=== PATIENT | male | born 1950 | race Caucasian/White ===

== ENCOUNTER 2018-10-12 21:53 | Emergency (ER) | payer OTHER, MEDICARE ==
[~2018-10-12] VITALS: Ht 175.3 cm; Wt 83.9 kg
--- NOTE | ~2018-10-12 | EKG ---
[address] [place] [address] ELECTROCARDIOGRAM REPORT Name: SAJI WILLETT Room #: 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1950 Requested By: Aida Batista Order Number: [id number] MD: Yg Wellington Measurements Intervals Richards Rate: 62 P: 54 RI: 197 QRS: -27 QRSD: 105 T: 56 QT: 429 QTc: 436 Interpretive Statements Sinus rhythm Borderline left axis deviation Compared to ECG 12/01/2016 07:00:54 No significant changes Electronically Signed On 10-13-2018 8:42:24 [employer] by Yg Wellington [email or web address] <ELECTRONICALLY SIGNED> By: Yg Wellington MD, LOCATED WITHIN [facility] 10/13/18 [id number] Yg Wellington MD, FACC /EPI
[~2018-10-12 21:53] MED LIST: ASPIR 8181 MG PO; ASPIRIN325 PO; ATORVASTATIN CA40 MG PO; BENAZEPRIL 10 M10 MG PO; CALCITRIOL1 MCG/1 M5 TOP; CLARITIN10 MG PO; EFFIENT10 MG PO; IMDUR 60 MG TAB60 M1 PO; LIPITOR 20 MG T20 M1 PO; LOPRESSOR50 PO; LUTEIN20 M1 PO; LUTEIN40 MG PO; METOPROLOL SUCC50 MG PO; NORCO 5-325 TA1 EACH PO; OCUVITE EYE +1 EACH PO; OCUVITE TABLET1 EAC1 PO; PATANASE30.5 GM NASAL; PRILOSEC 20 MG20 MG PO; TOPROL XL25 MG PO; VITAMIN D2000 UNIT PO; VITAMIN E400 UNIT PO
[2018-10-12] MEDS ORDERED: BENAZEPRIL HCL5 MG PO (22:06)
[2018-10-12] MEDS ORDERED: METOPROLOL SUCC50 MG PO (22:06)
[2018-10-12] MEDS ORDERED: TOPROL XL25 MG PO (22:07)
[2018-10-12 22:18] LABS: ABSOLUTE NEUTROPHILS 4.7 thou/uL (1.4-8.2); BASOPHILS 1.1 % (0.0-2.0); EOSINOPHILS 6.9 % (0.0-3.0); HEMATOCRIT 41.9 % (42.0-52.0); HEMOGLOBIN 14.3 gm/dL (14.0-18.0); LYMPHOCYTES 30.4 % (24.0-44.0); MCH 28.8 pg (26.0-34.0); MCV 84.6 fL (80.0-100.0); MONOCYTES 8.1 % (1.0-8.0); PLATELET COUNT 180 thou/uL (150-400); POLYS 53.5 % (36.0-66.0); RBC 4.96 mil/uL (4.50-6.00); RDW 13.8 % (10.5-14.5); WBC 8.7 thou/uL (4.0-11.0)
[2018-10-12 22:20] LABS: ANION GAP 10 mmol/L (7-16); BUN 26 mg/dL (7-18); CALCIUM 8.6 mg/dL (8.5-10.1); CHLORIDE 104 mmol/L (98-107); CO2 30 mmol/L (21-32); CREATININE 1.2 mg/dL (0.7-1.3); GLUCOSE 109 mg/dL (74-106); POTASSIUM 3.9 mmol/L (3.5-5.1); SODIUM 144 mmol/L (136-145)
[2018-10-12 22:29] LABS: ALBUMIN 3.8 g/dL (3.4-5.0); SGOT 20 U/L (15-37); SGPT 32 U/L (30-65); TOTAL BILIRUBIN 0.5 mg/dL (<0.1-1.0); TROPONIN-I <0.06 ng/mL (<0.06)
[2018-10-13 01:02] VITALS: BP 111/66
== END 2018-10-13 01:06 | disposition home or self-care (01) ==
LOC: ER 21:53
PROVIDERS: Emergency Medicine
DX: R07.89 Other chest pain (principal); I10 Essential (primary) hypertension; E78.5 Hyperlipidemia, unspecified; K21.9 Gastro-esophageal reflux disease without esophagitis; L40.9 Psoriasis, unspecified; Z87.891 Personal history of nicotine dependence; Z88.2 Allergy status to sulfonamides

== ENCOUNTER → 2020-05-22 | Outpatient (CLI) | payer OTHER, MEDICARE ==
[~2020-05-22] MED LIST changes: +BENAZEPRIL HCL5 MG PO
== END ==
LOC: SJCVC 10:40
PROVIDERS: ATTEND Internal Medicine
DX: I25.10 Atherosclerotic heart disease of native coronary artery without angina pectoris (principal); E78.5 Hyperlipidemia, unspecified; I10 Essential (primary) hypertension; I65.23 Occlusion and stenosis of bilateral carotid arteries; E11.9 Type 2 diabetes mellitus without complications; K21.9 Gastro-esophageal reflux disease without esophagitis; Z79.82 Long term (current) use of aspirin; Z79.899 Other long term (current) drug therapy; Z87.891 Personal history of nicotine dependence

== ENCOUNTER → 2020-10-08 | Outpatient (CLI) | payer OTHER, MEDICARE | LOC: SJCVCIMAG 13:57 | PROVIDERS: ATTEND Internal Medicine | DX: I25.10 Atherosclerotic heart disease of native coronary artery without angina pectoris (principal); E78.5 Hyperlipidemia, unspecified; I10 Essential (primary) hypertension; Z98.61 Coronary angioplasty status; Z79.899 Other long term (current) drug therapy ==

== ENCOUNTER → 2021-04-14 | Outpatient (CLI) | payer OTHER, MEDICARE | LOC: SJCVC 10:39 | PROVIDERS: ATTEND Internal Medicine | DX: R00.1 Bradycardia, unspecified (principal); I25.10 Atherosclerotic heart disease of native coronary artery without angina pectoris; E78.5 Hyperlipidemia, unspecified; I10 Essential (primary) hypertension; I65.23 Occlusion and stenosis of bilateral carotid arteries; E11.9 Type 2 diabetes mellitus without complications; K21.9 Gastro-esophageal reflux disease without esophagitis; E78.00 Pure hypercholesterolemia, unspecified; Z95.5 Presence of coronary angioplasty implant and graft; Z90.49 Acquired absence of other specified parts of digestive tract; Z88.2 Allergy status to sulfonamides; Z88.8 Allergy status to other drugs, medicaments and biological substances; Z79.899 Other long term (current) drug therapy; Z87.891 Personal history of nicotine dependence ==